=== PATIENT | female | born 1990 | race Caucasian/White ===

== ENCOUNTER → 2022-06-15 13:27 | Outpatient (CLI) | payer OTHER, SELFPAY ==
--- NOTE | ~2022-06-15 | MR_ITS ---
EXAMINATION: MR brain/brain stem wo/w con DATE: 06/15/2022 14:39 INDICATION: Visual loss. Headache and dizziness. TECHNIQUE: Magnetic resonance imaging (MRI) of the brain and brainstem was performed without and with 12 mL MultiHance intravenous contrast. COMPARISON: None. FINDINGS: There is no intracranial hemorrhage or acute infarction. There is an 8 x 3 x 3 mm enhancing lesion in right thalamus without abnormality on other sequences. The ventricles are normal in size. The mastoid air cells are normal. The orbits are normal. There are mucous retention cysts in the maxi llary sinuses. IMPRESSION: 1. 8 mm enhancing lesion in right thalamus, most likely a benign lesion such as a developmental venou s anomaly. Metastatic disease cannot be excluded. Reviewed, dictated and finalized at location A. [employer] IMPRESSION: 1. 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 Metastatic disease cannot be excluded.
== END ==
PROVIDERS: PCP Physician Assistant; Visit Provider Physician Assistant
DX: H53.123 Transient visual loss, bilateral (principal); G93.9 Disorder of brain, unspecified
CPT/HCPCS: 70553; A9577

== ENCOUNTER → 2022-09-19 08:24 | Outpatient (CLI) | payer OTHER, SELFPAY ==
--- NOTE | ~2022-09-19 | MR_ITS ---
EXAMINATION: MR brain/brain stem wo/w con DATE: 09/19/2022 09:09 INDICATION: Lesion of brain. TECHNIQUE: Magnetic resonance imaging (MRI) of the brain and brainstem was performed without and with 13 mL MultiHance intravenous contrast. COMPARISON: Brain MRI 06/15/2022 FINDINGS: There is no intracranial hemorrhage, acute infarction, or abnormal intracranial mass lesion . The previously seen enhancement in right thalamus is not visualized. The ventricles are normal in s ize. There is mucous retention cysts in the maxillary sinuses. The orbits are normal. The mastoid air cells are normal. IMPRESSION: 1. Normal brain. Reviewed, dictated and finalized at location A. IMPRESSION: 1. Normal brain.
== END ==
PROVIDERS: PCP Physician Assistant; Visit Provider Nurse Practitioner Adult Health
DX: G93.9 Disorder of brain, unspecified (principal)
CPT/HCPCS: 70553; A9577